=== PATIENT | female | born 2000 | race African-American/Black ===

== ENCOUNTER 2020-08-01 15:56 | Emergency (ER) | payer BC, SELFPAY ==
--- NOTE | ~2020-08-01 | US_ITS ---
EXAMINATION: US pelvic complete w TV DATE: 08/01/2020 17:37 INDICATION: Pelvic pain TECHNIQUE: Multiple transabdominal and endovaginal sonographic images of the pelvis were obtained. COMPARISON: None. FINDINGS: The anteverted uterus measures 7.0 x 3.4 x 4.3 cm. The endometrial complex measures 4 mm in thicknes s. The right ovary measures 5.9 x 3.1 x 4.9 cm. The left ovary measures 4.7 x 3.4 x 3.4 cm. Several s mall anechoic cysts/follicles at both ovaries. There is normal vascular flow in the ovaries. There is no free fluid in the pelvis. IMPRESSION: 1. Normal pelvic ultrasound. Reviewed, dictated and finalized at location A.
[2020-08-01 16:01] VITALS: BP 134/79; PULSE 70; RESP 16; TEMP 36.4; O2SAT 100
[2020-08-01 16:23] LABS: Basophils Absolute Auto 0.1 K/mm3 (0.0-0.1); Basophils Percent Auto 0.8 % (0.2-1.2); Eosinophils Percent Auto 0.7 % (0-4.4); Hematocrit 42.5 % (37.0-47.0); Hemoglobin 14.1 g/dL (12.0-15.0); Immature Granulocyte Absolute 0.02 K/mm3 (0.00-0.031); Immature Granulocyte Percent A 0.3 % (0-0.5); Lymphocytes Absolute Auto 1.33 K/mm3 (0.9-3.2); Lymphocytes Percent Auto 22.5 % (18.3-44.2); Mean Corpuscular HGB Conc 33.2 g/dl (32-36); Mean Corpuscular Hemoglobin 26.9 pg (26-34); Mean Platelet Volume 10.8 fl (7.4-10.4); Monocytes Absolute Auto 0.3 K/mm3 (0.1-0.6); Monocytes Percent Auto 5.6 % (2.6-8.5); Neutrophils Absolute Auto 4.2 K/mm3 (1.3-6.7); Neutrophils Percent Auto 70.1 % (45.5-73.1); Platelet Count Result 232 k/mm3 (150-375); Red Blood Count 5.25 M/mm3 (4.2-5.4); Red Cell Distribution Width 13.5 % (11.5-14.5); White Blood Count 5.9 K/mm3 (4.5-10.0)
--- NOTE | 2020-08-01 16:28 | PC.NURSE ---
PT TO ULTRASOUND AT THIS TIME WILL MEDICATE PER PROVIDER ORDER UPON RETURN.
[2020-08-01 16:31] LABS: Add Urine Microscopic? YES; Appearance Urine Clear (Clear); Bilirubin Urine Negative (Negative); Blood Urine 2+ (Negative); Color Urine Straw (Yellow); Glucose Urine UA Negative (Negative); Ketones Urine Negative (Negative); Leukocyte Esterase Ur Negative LEU/UL (Negative); Nitrate Urine Negative (Negative); Protein Urine 1+ mg/dL (Negative); Specific Grav Ur 1.008 (1.001-1.035); Squamous Epithelial Cell Urine Occasional /hpf (Few); Urobilinogen Urine Negative mg/dL (<2.0); WBC Urine 0-3 /hpf
[2020-08-01 16:35] LABS: Alanine Aminotransferase 11 U/L (4-35); Albumin Level 4.3 g/dL (3.5-5.1); Alkaline Phosphatase 81 U/L (38-126); Anion Gap 7 mmol/L (8-16); Aspartate Amino Transferase 21 U/L (14-36); Bilirubin,Total 0.6 mg/dL (0.2-1.3); Blood Urea Nitrogen 6 mg/dL (7-17); Calcium 9.6 mg/dL (8.4-10.2); Carbon Dioxide 29 mmol/L (22-30); Chloride 106 mmol/L (98-107); Estimated CRCL calculation 79 ml/min; Estimated Glomerular Filt Rate > 60; Glucose 94 mg/dL (65-105); Lipase 62 U/L (23-300); Potassium 4.6 mmol/L (3.4-5.0); Sodium 142 mmol/L (137-145)
[2020-08-01] MEDS: ONDANSETRON INJ 4 MG/2 ML VIAL IV PUSH (17:36)
[2020-08-01] MEDS: SODIUM CHLORIDE 0.9% IV 1,000 ML 999 ML IV CONT (17:36)
[2020-08-01] MEDS: KETOROLAC 30 MG/ML VIAL (*BKC) IV PUSH (17:36)
--- NOTE | 2020-08-01 17:41 | ED.NAVMDI ---
HPI - Nausea/Vomiting/Diarrhea General Chief complaint: Nausea/Vomiting/Diarrhea Stated complaint: Vomiting Time Seen by Provider: 08/01/20 16:02 Source: RN notes reviewed History of Present Illness HPI Narrative: Patient presents emergency room from home for nausea vomiting and diarrhea.. Patient states symptoms began this morning. She states that is associated with cramping in the lower abdomen. Patient states she is currently on her menstrual cycle and has a history of endometriosis and feels like her normal menstrual cycle cramping. She denies any fevers or chills chest pain shortness of breath or any other symptoms. She states that she has not taken any pain medication today Related Data Allergies Allergy/AdvReac Type Severity Reaction Status Date / Time No Known Allergies Allergy Verified 08/01/20 16:03 Review of Systems Review of Systems: Narrative: Gen.: Denies fevers or chills ENT: Denies congestion Respiratory: Denies shortness of breath or cough CV: Denies chest pain or palpitations GI: See HPI denies burning, urgency, frequency or hematuria Musculoskeletal: Denies back pain or muscle pain Neuro: Denies numbness, tingling, weakness or focal weakness Skin: Denies rash Except as documented, all other systems reviewed and negative [facility] Past Medical History Medical History (Updated 08/01/20 @ 18:22 by Berry Esparza DO) Endometriosis Social History Social History (Updated 08/01/20 @ 17:43 by Berry Esparza DO) Smoking status: Never smoker Exam Narrative: Exam Narrative: APPEARANCE: No acute distress, nontoxic, resting in bed HEENT: Normocephalic, atraumatic, OMM RESPIRATORY: No respiratory distress, clear to auscultation bilaterally with no rhonchi wheezing or rales CARDIOVASCULAR: RRR s murmur ABDOMINAL: Soft, nondistended, tender palpation right lower quadrant left lower quadrant, no tenderness right upper quadrant left upper quadrant, no rebound or guarding MUSCULOSKELETAl: Moves all extremities. No clubbing, cyanosis or edema. NEURO: Awake and alert. Following commands, speech normal, no focal deficits SKIN:: Warm, dry. Normal Color PSYCHIATRIC: Normal affect/mood Course Course Emergency Course: Patient states that current symptoms occur monthly with her menstrual cycle Patient states that they are feeling much better at this time. States abdominal pain has resolved. Repeat abdominal exam shows the patient's abdomen to be soft and nontender. Discussed with patient results of workup and diagnosis. Discussed need for follow-up with primary care physician, reasons to return to the emergency department in proper use of medication. Patient understands and agrees to current treatment plan Vital Signs Vital signs: Vital Signs Temperature 97.6 F 08/01/20 16:01 Pulse Rate 70 08/01/20 16:01 Respiratory Rate 16 08/01/20 16:01 Blood Pressure 134/79 08/01/20 16:01 Pulse Oximetry 100 08/01/20 16:01 Temperature 97.6 F 08/01/20 16:01 Pulse Rate 70 08/01/20 16:01 Respiratory Rate 16 08/01/20 16:01 Blood Pressure 134/79 08/01/20 16:01 Pulse Oximetry 100 08/01/20 16:01 MDM - Nausea/Vomiting/Diarrhea MDM Narrative Medical decision making narrative: Patient's abdomen is soft without significant pain or signs of surgical abdomen on serial exams. Lab and x-ray evaluations are reviewed and patient is felt to be a reasonable candidate for outpatient management. Patient was instructed as to limitations of x-ray and laboratory evaluation and encouraged to return to ED or primary physician for repeat exam in 12 hours if continued or worsening pain Lab Data Result diagrams: 08/01/20 16:15 08/01/20 16:15 Labs: Lab Results 08/01/20 08/01/20 08/01/20 Range/Units 16:15 16:15 16:15 WBC 5.9 (4.5-10.0) K/mm3 RBC 5.25 (4.2-5.4) M/mm3 Hgb 14.1 (12.0-15.0) g/dL Hct 42.5 (37.0-47.0) % MCV 81.0 (80-100) fl MCH 26.9 (26
[2020-08-01 18:42] VITALS: BP 118/76; PULSE 75; RESP 18; O2SAT 100
--- NOTE | 2020-08-08 07:15 | PC.NURSE ---
LATE ENTRY This note is being entered to document information to the patient's record. The following information was omitted on [08/01/20], by [Thania Hunter]. Normal Saline stop time at 1718.
== END 2020-08-01 18:43 | disposition home or self-care (01) ==
PROVIDERS: Emergency Provider Emergency Medicine
DX: R11.2 Nausea with vomiting, unspecified (principal); R10.32 Left lower quadrant pain; R10.31 Right lower quadrant pain; N80.9 Endometriosis, unspecified
CPT/HCPCS: 36415; 76830; 76856; 80053; 81001; 81025; 83690; 85025; 96374; 96375; 99284; J1885; J2405; J7030

== ENCOUNTER 2020-11-21 10:16 | Emergency (ER) | payer BC, SELFPAY ==
--- NOTE | ~2020-11-21 | XR_ITS ---
EXAMINATION: XR shoulder LT min 2V DATE: 11/21/2020 10:38 INDICATION: Left shoulder pain. TECHNIQUE: 4 views of left shoulder were obtained. COMPARISON: None. FINDINGS: Bone alignment is normal. No fracture. Joint spaces are well maintained. IMPRESSION: 1. Normal left shoulder. Reviewed, dictated and finalized at location B. SETTER IMPRESSION: 1. Normal left shoulder.
[2020-11-21 10:22] VITALS: BP 118/81; PULSE 83; RESP 12; TEMP 36.6; O2SAT 100
[2020-11-21 10:26] VITALS: BP 118/81; PULSE 83; RESP 12; TEMP 36.6; O2SAT 100
--- NOTE | 2020-11-21 10:26 | ED.UPPEXIN ---
HPI - Extremity Injury (Upper) General Chief Complaint: Extremity Injury, Upper Stated Complaint: L SHOULDER PAIN Time Seen by Provider: 11/21/20 10:26 Source: patient Mode of arrival: ambulatory Limitations: no limitations History of Present Illness HPI narrative: Mariely Jarquin is a 20 yo female with no PMH who comes to express care with L shoulder pain that has been going on awhile with no injury. Worse with cold weather. No remote injury or overuse such as with sports. Patient states that started few months ago when she awoke and shoulder hurt but now has gotten to the point of hurting it was constantly and the pain is increased and at times is like 9 out of 10 Related Data Home Medications Medication Instructions Recorded Confirmed norethindrone-e.estradiol-iron 1 tablet PO DAILY 11/21/20 11/21/20 [Aurovela Fe 1.5/30 (28)] Allergies Allergy/AdvReac Type Severity Reaction Status Date / Time amoxicillin Allergy Swelling Verified 11/21/20 10:25 of Lip/Tongue/Throat Penicillins Allergy Swelling Verified 11/21/20 10:25 of Lip/Tongue/Throat Review of Systems Review of Systems: Narrative: CONSTITUTIONAL: Denies fever, chills, sweats. EYES: Denies visual changes, redness, discharge. ENT: Denies rhinorrhea, congestion, sore throat, otalgia. CARDIOVASCULAR: Denies chest pain, palpitations, edema. RESPIRATORY: Denies dyspnea, wheezing, cough GASTROINTESTINAL: Denies abdominal pain, nausea, vomiting, diarrhea. GENITOURINARY: Denies dysuria, hematuria, abnormal discharge SKIN: Denies rash or itching. NEUROLOGIC: Denies numbness, or focal weakness. PSYCHIATRIC: Denies anxiety or depression. Left shoulder pain - unable to raise arm without pain PMFSH Past Medical History Medical History Endometriosis Family History Family History Other No acute medical problems Social History Social History (Updated 11/21/20 @ 10:51 by Maki Sen CNP) Smoking status: Never smoker Alcohol intake: never Comments At time of signature, I agree with nursing past medical, surgical, social and family history. There is no relevant family history pertinent to the presenting complaint. Exam Narrative: Exam Narrative: GENERAL: This is a well-nourished, well-developed patient, in mild distress. HEAD: normocephalic, atraumatic. EYES: Sclera clear/white. Vision is grossly intact. EARS: External ears normal, . Hearing grossly intact. NOSE: External nose normal without nasal discharge, nares without redness, no rhinorrhea. THROAT: Mucous membranes moist, NECK: Neck supple, non-tender CARDIOVASCULAR: Regular rate and rhythm without murmurs, gallops, or rubs. RESPIRATORY: Clear to auscultation. Breath sounds equal bilaterally. No wheezes, rales, or rhonchi. GASTROINTESTINAL: Abdomen soft, SKIN: warm, intact with no suspicious lesions or rash, good texture and turgor. NEURO: awake, alert, and oriented to person, place and time. There were no obvious focal neurologic abnormalities. Steady gait EXTREMITIES: Normal range of motion on R. L shoulder tenderness on top of AC joint. Unable to lift arm over head on the left beyond 90 degrees without pain increasing unable to touch shoulder with right arm. Weakness on left 3 out of 5 versus 5 out of 5 on right. Maintain balance on a push pull test on left due to arm weakness BACK: Nontender without deformity Course Course [facility]: [facility] shoulder pain that has worsened over the last couple of months X-ray is normal showing no fracture joint spaces are maintained no arthritic changes Medrol Dosepak and high-dose ibuprofen, patient placed in sling, is being sent to orthopedist to assess weakness in shoulder Vital Signs Vital signs: Vital Signs Temperature 97.9 F 11/21/20 10:22 Pulse Rate 83
== END 2020-11-21 11:00 | disposition home or self-care (01) ==
PROVIDERS: Emergency Provider Nurse Practitioner
DX: M25.512 Pain in left shoulder (principal); N80.9 Endometriosis, unspecified
CPT/HCPCS: 73030; 99213; A4565; G0463

== ENCOUNTER 2021-12-31 13:33 | Emergency (ER) | payer BC, SELFPAY ==
[2021-12-31 13:44] VITALS: BP 117/79; PULSE 97; RESP 16; TEMP 36.8; O2SAT 100
--- NOTE | 2021-12-31 13:57 | ED.GENADULT ---
HPI - General Adult General Chief complaint: Extremity Problem,Nontraumatic Stated complaint: Hand and foot numbness. Time Seen by Provider: 12/31/21 13:57 Source: patient Mode of arrival: ambulatory Limitations: no limitations History of Present Illness HPI narrative: 21 yo F presents with c/o intermittent numbness and tingling to both hands and both feet for 1.5 months. Per pt started randomly, no injury. Cannot relate it to sitting, standing, sleeping. happens all the time. sometimes lasts a few minutes and other times a few hours . Denies weakness to extremities. Deneis headaches, vision change. Pt is a student at [employer]. Lives in [place] and does not have a PCP in the area. 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 Ambulatory with steady gait. Is currently not experiencing any numbness or tingling. All systems reviewed and negative except as noted above. Related Data Home Medications Medication Instructions Recorded Confirmed norethindrone-e.estradiol-iron 1 tablet PO DAILY 11/21/20 11/26/20 [Aurovela Fe 1.5/30 (28)] Allergies Allergy/AdvReac Type Severity Reaction Status Date / Time amoxicillin Allergy Swelling Verified 11/26/20 09:59 of Lip/Tongue/Throat Penicillins Allergy Swelling Verified 11/26/20 09:59 of Lip/Tongue/Throat Review of Systems Review of Systems: CONSTITUTIONAL: Denies fever, chills, or sweats. EYES: Denies visual changes, redness, or discharge. ENT: Denies rhinorrhea, congestion, sore throat, or otalgia. CARDIOVASCULAR: Denies chest pain, palpitations, or edema. RESPIRATORY: Denies cough or dyspnea. GASTROINTESTINAL: Denies abdominal pain, nausea, vomiting, or diarrhea. GENITOURINARY: Denies dysuria or hematuria. SKIN: Denies rash or itching. MUSCULOSKELETAL: Denies back pain, joint pain, or myalgia. NEUROLOGIC: Denies headache or weakness. Reports numbness and tingling sensation intermittently to both hands and both feet. PSYCHIATRIC: Denies anxiety or depression. All other systems reviewed are negative, except as documented in HPI. [facility] Past Medical History Medical History (Updated 12/31/21 @ 14:06 by Holly Fink NP) [place] Endometriosis Left cervical radiculopathy Tendinitis of left rotator cuff Surgical History Surgical History (Updated 11/27/20 @ 09:57 by Marie Rivera RT(R)) History of lumpectomy 2017 Family History Family History (Updated 11/27/20 @ 09:57 by Marie Rivera RT(R)) Other Asthma Diabetes mellitus High cholesterol No acute medical problems Social History Social History (Updated 11/27/20 @ 09:58 by Marie Rivera RT(R)) Smoking status: Never smoker Alcohol intake: never Substance use: never Substance use type: does not use Gender identity (if verbalized by the patient): Female Comments At time of signature, agree with nursing past medical, surgical, social and family history. There is no relevant family history pertinent to the presenting complaint. Exam Narrative: GENERAL: This is a well-nourished, well-developed patient, in no apparent distress. HEAD: normocephalic, atraumatic. EYES: PERRL. Sclera clear/white. Vision is grossly intact. EARS: External ears normal, auditory canals clear and without drainage, TMs normal without perforation. Hearing grossly intact. NOSE: External nose normal with no obvious nasal discharge, nares without redness, no rhinorrhea. THROAT: Mucous membranes moist, posterior pharynx clear. NECK: Neck supple, non-tender without lymphadenopathy, masses or thyromegaly. CARDIOVASCULAR: Regular rate and rhythm without murmurs, gallops, or rubs. RESPIRATORY: Clear to auscultation. Breath sounds equal bilaterally. No wheezes, rales, or rhonchi. GASTROINTESTINAL: Abdomen soft, non-tender, nondistended. Bowel sounds are active. No hepato-splenomegaly, or palpable masses. No guarding. SKIN: warm, Dry, intact with no suspicious lesions
== END 2021-12-31 14:13 | disposition home or self-care (01) ==
PROVIDERS: Emergency Provider Nurse Practitioner Family
DX: R20.2 Paresthesia of skin (principal); N80.9 Endometriosis, unspecified
CPT/HCPCS: 99212; G0463